=== PATIENT | female | born 1960 | race Two or more races ===

== ENCOUNTER 2017-10-24 06:59 | Day surgery (SDC) | payer OTHER ==
[2017-10-24] MEDS ORDERED: BUPIVACAINE MPF 0.75% 30 ML VIAL IJ ONE (11:00)
[2017-10-24] MEDS ORDERED: ROCURONIUM BROMIDE 50 MG/5 ML ONE (11:13)
[2017-10-24] MEDS ORDERED: MIDAZOLAM HCL 2 MG/2ML VIAL ONE (11:13)
== END 2017-10-24 14:03 | disposition home or self-care (01) ==
LOC: DS 06:59
PROVIDERS: ATTEND Specialist
DX: M75.111 Incomplete rotator cuff tear or rupture of right shoulder, not specified as traumatic (principal); M75.41 Impingement syndrome of right shoulder; M75.21 Bicipital tendinitis, right shoulder; M25.511 Pain in right shoulder; I10 Essential (primary) hypertension; Z79.899 Other long term (current) drug therapy; Z98.890 Other specified postprocedural states
CPT/HCPCS: 88304-TC; 88311-TC; A4217; A6253; C1713; J2250; J3490